=== PATIENT | male | born 1990 | race Caucasian/White ===

== ENCOUNTER 2017-01-11 14:14 | Emergency (ER) | payer SELFPAY ==
[2017-01-11] MEDS ORDERED: traMADol HCl 50 MG TAB ONE (15:12)
[2017-01-11] MEDS ORDERED: Ibuprofen 800 MG TAB ONE (15:15)
--- NOTE | 2017-01-11 15:32 | RAD ---
RIGHT ANKLE 3 VIEWS: History Leg pain. COMPARISON: None. FINDINGS: Fine bony detail evaluation is limited due to overlying cast material. There appears to be a fractu re of the talar neck with mild medial displacement. IMPRESSION: Concern for a fracture of the talar neck with medial displacement. A followup without overlying sarita t may be beneficial for further detailed evaluation. POS: [facility]
--- OUTSIDE RECORDS SUMMARY | 2017-01-14 12:45 | XMS | Continuity of Care Document ---
:1990 Author Organization [facility] Care Team Providers Name Role Phone JOHN CARVAJAL Primary Care Physician Unavailable Insurance Providers Payer Name Policy Number Subscriber Name Relationship MEDICAID PENDING GRZEGORZ BAUMAN SELF/SAME PATIENT [employer] PENDING GRZEGORZ BAUMAN SELF/SAME PATIENT Advance Directives Directive Response Recorded Date/Time Advance Directive? N 01/05/17 3:48am Living Will? N 01/05/17 3:48am Health Care Proxy? N 01/05/17 3:48am Healthcare Power of Wire Stitcher Machine? N 01/05/17 3:48am Is the patient an Organ Donor? N 01/05/17 3:48am Chief Complaint and Reason for Visit Reason for Visit LAC TO LT.EYE-LID & PAIN TO RT.ANKLE". Problems Active Medical Problems Problem Onset Date Recorded Date Status Facial laceration Unknown 01/05/17 Active Closed head injury Unknown 01/05/17 Active Fracture, talus closed Unknown 01/05/17 Active Medications Current Home Medications Medication Dose Units Route Directions Days/Qty Instructions Start Date Hydrocodone-Acet 10 MG By Mouth EVERY SIX HOURS aminophen (NORCO NEEDED as 5 MG/325 MG TAB) needed for PAIN 5 MG/325 MG TAB Omeprazole 40 MG By Mouth EVERY DAY @ 0900 (PRILOSEC 40 MG CAP) 40 MG CAP ZOLPIDEM 10 MG By Mouth AT BEDTIME TARTRATE (2100) (AMBIEN) 10 MG TAB Past Home Medications Medication Directions Ordered Status Albuterol Inhaler 8 Gm (Ventolin 8 Gm) FOUR TIMES A DAY (0900) 03/29/13 Discontinued 60 Puff/8 Gm Inh Inh, 1 Inh Inhalation Methylprednisolone (Medrol 4 Mg Dosepak EVERY MORNING 03/29/13 Discontinued ([id number])) 1 Pkg Tab Tab, 1 Pkg By Mouth Promethazine Hcl (Phenergan 25 Mg Tab) Unknown Discontinued 25 Mg Tab Tab, Social History Problem Response Recorded Date Recreational drugs? Y 01/05/17 Alcohol? Y 01/05/17 Query Response Start Date Stop Date Smoking Status: Current Every Day Smoker Hospital Discharge Instructions No hospital discharge instructions. Plan of Care Discharge Date 01/05/17 Disposition HOME/SELF CARE Condition at Discharge STABLE Instructions/Education Provided DI for Laceration Repair -- Simple DI for Laceration Repair With Dermabond DI for Closed Head Injury DI for Talus Fracture Forms Provided Discharge Form Prescriptions See Medications Section Referrals [facility],DOC - Additional Instructions/Education 7 sutures to be removed in 10 days, dermabond will come off on its own - do not remove, can wash face w water, return to er if symptoms reoccur, non weight bearing on R ankle (talus fracture) strict orthopedic surgery follow up in 2 days Functional Status No functional status results. Allergies, Adverse Reactions, Alerts No known allergies. Immunizations Name Date Given Type DTaP 01/05/17 Administered Vital Signs Vital Reading Collection Date/Time Result Blood Pressure 01/05/17 7:10am 154/107 Temperature 01/05/17 7:10am 98.3 F Temperature Source 01/05/17 3:28am Tympanic Pulse Rate 01/05/17 7:10am 98 Bedside Pulse Oximetry 01/05/17 7:10am 96 Height 01/05/17 3:28am 5 ft 11 in Height 01/05/17 3:28am 180.34 cm Weight 01/05/17 3:28am 185 lb Weight 01/05/17 3:28am 83.915 kg Body Mass Index 01/05/17 3:28am 25.8 kg/m2 Results Laboratory Results Test Name Result Units Flags Reference Collection Result Comments Date/Time Date/Time White Blood 17.2 K/uL H 4.8-10.8 01/05/17 01/05/17 Count 6:38am 6:55am Red Blood Count 5.45 M/uL 4.70-6.00 01/05/17 01/05/17 6:38am 6:55am Hemoglobin 16.3 g/dL 13.5-17.5 01/05/17 01/05/17 6:38am 6:55am Hematocrit 49.0 % 42.0-52.0 01/05/17 01/05/17 6:38am 6:55am Mean 90.0 fl 80.0-100.0 01/05/17 01/05/17 Corpuscular 6:38am 6:55am Volume Mean 30.0 pg 27.0-31.0 01/05/17 01/05/17 Corpuscular 6:38am 6:55am Hemoglobin Mean 33.3 g/dL 32.0-36.0 01/05/17 01/05/17 Corpuscular Hgb 6:38am 6:55am Concent Diff Red Cell 13.8 % 11.5-14.5 01/05/17 01/05/17 Distribution 6:38am 6:55am Width Platelet Count 171 K/uL 130-400 01/05/17 01/05/17 6:38am 6:55am Mean Platelet 10.1 fl 7.4-10.4 01/05/17 01/05/17 Volume 6:38am 6:55am Granulocytes 75.5 % H 50.0-75.0 01/05/17 01/05/17 (%) 6:38am 6:55am Lymphocytes % 13.4 % L 20.0-40.0 01/05/17 01/05/17 6:38am 6:55am Monocytes % 8.5 % 0.0-15.0 01/05/17 01/05/17 6:38am 6:55am Eosinophils % 1.8 % 0.0-10.0 01/05/17 01/05/17 6:38am 6:55am Basophils % 0.8 % 0.0-2.0 01/05/17 01/05/17 6:38am 6:55am Granulocytes # 13.0 K/uL H 1.8-6.4 01/05/17 01/05/17 6:38am 6:55am Lymphocytes # 2.3 K/uL 1.2-3.6 01/05/17 01/05/17 6:38am 6:55am Monocytes # 1.5 K/uL H 0.3-0.9 01/05/17 01/05/17 6:38am 6:55am Eosinophils # 0.3 K/UL 0.0-0.5 01/05/17 01/05/17 6:38am 6:55am Basophils # 0.1 K/UL 0.0-0.2 01/05/17 01/05/17 6:38am 6:55am Manual NO 01/05/17 01/05/17 Differential 6:38am 6:55am Sodium Level 137 mmol/L 135-144 01/05/17 01/05/17 6:38am 7:01am Potassium Level 3.8 mmol/L 3.5-5.1 01/05/17 01/05/17 6:38am 7:01am Chloride Level 104 mmol/L 101-111 01/05/17 01/05/17 6:38am 7:01am Carbon Dioxide 28 mmol/L 22-32 01/05/17 01/05/17 Level 6:38am 7:01am Anion Gap 8.8 mmol/L L 10-20 01/05/17 01/05/17 6:38am 7:01am Glucose Level 106 mg/dL 70-109 01/05/17 01/05/17 Random glucose > 200 mg/dL in a patient with typical 6:38am 7:01am symptoms of diabetes (polydipsia, polyuria and unexplained weight loss) satisfies ADA criteria for diabetes mellitus if confirmed by repeat testing on another day. Confirmation is unnecessary when acute metabolic decompensation with hyperglycemia is manifested. Reference: Report of the Expert Committee on the Diagnosis and Classification of Diabetes Mellitus. Diabetes Care, 20:1183, 1997. Blood Urea 10 mg/dL 8-26 01/05/17 01/05/17 Nitrogen 6:38am 7:01am Creatinine 1.00 mg/dL 0.61-1.24 01/05/17 01/05/17 6:38am 7:01am EGFR Note 128.4 59.3-175.8 01/05/17 01/05/17 eGFR (Estimated Glomerular Filtration Rate) 6:38am 7:01am eGFR calculation value obtained using the [facility] Quadratic (MCQ) equation. The reportable reference range is recommended to be greater than 60 ml/min/1.73m. This is an estimation of the patient's GFR and clinical correlation is recommended. This eGFR calculation does not account for race. This result may differ from other equations available. Calcium Level 9.1 mg/dL 8.9-10.3 01/05/17 01/05/17 6:38am 7:01am Alcohols < 5 mg/dL 0-5 01/05/17 01/05/17 6:38am 7:01am Procedures No Known History of Procedures. Encounters Encounter Location Arrival/Admit Date Discharge/Depart Date Attending Provider Departed [facility] 01/05/17 3:27am 01/05/17 6:43am NIKO POON [facility] Encounter Diagnosis Onset Date Facial laceration Closed head injury Fracture, talus closed
== END 2017-01-11 16:53 | disposition home or self-care (01) ==
LOC: ERS 14:14
DX: S92.111A Displaced fracture of neck of right talus, initial encounter for closed fracture (principal); F17.210 Nicotine dependence, cigarettes, uncomplicated; V89.2XXA Person injured in unspecified motor-vehicle accident, traffic, initial encounter